=== PATIENT | female | born 1985 | race Caucasian/White ===

== ENCOUNTER 2017-12-20 17:44 | Emergency (ER) | payer OTHER ==
[~2017-12-20] VITALS: Ht 165.1 cm; Wt 68.0 kg
[2017-12-20 18:49] LABS: ABSOLUTE NEUTROPHILS 11.3 thou/uL (1.4-8.2); BASOPHILS 0.6 % (0.0-2.0); EOSINOPHILS 0.5 % (0.0-3.0); HEMATOCRIT 47.1 % (37.0-47.0); MCH 30.5 pg (26.0-34.0); MCV 89.7 fL (80.0-100.0); PLATELET COUNT 314 thou/uL (150-400); POLYS 80.9 % (36.0-66.0); RBC 5.25 mil/uL (4.20-5.00); RDW 13.5 % (10.5-14.5)
[2017-12-20 18:52] LABS: CALCIUM 9.4 mg/dL (8.5-10.1); CREATININE 0.8 mg/dL (0.6-1.0); POTASSIUM 4.6 mmol/L (3.5-5.1)
[2017-12-20 19:11] LABS: URINE BILIRUBIN NEGATIVE (Negative); URINE BLOOD TRACE (Negative); URINE CLARITY CLEAR; URINE COLOR YELLOW; URINE GLUCOSE-RANDOM* NEGATIVE (Negative); URINE KETONES NEGATIVE (Negative); URINE LEUKOCYTES-REFLEX NEGATIVE (Negative); URINE NITRITE-REFLEX NEGATIVE (Negative); URINE PROTEIN (DIPSTICK) NEGATIVE (Negative); URINE SPECIFIC GRAVITY 1.025 (1.005-1.035); URINE UROBILINOGEN 0.2 E.U./dl (0.2-1.0)
[2017-12-20 20:24] VITALS: BP 122/74
== END 2017-12-20 20:24 | disposition home or self-care (01) ==
LOC: ER 17:44
PROVIDERS: Physician Assistant
DX: G43.909 Migraine, unspecified, not intractable, without status migrainosus (principal); R11.2 Nausea with vomiting, unspecified; Z98.890 Other specified postprocedural states